=== PATIENT | female | born 1960 | race African-American/Black ===

== ENCOUNTER 2023-08-05 08:31 | Outpatient (AMB) | payer OTHER, SELFPAY ==
[2023-08-05 08:37] VITALS: BMI 33.0
--- NOTE | 2023-08-05 08:37 | A.OFFVIS_ITS ---
Intake VS Expanded 08/05/23 08:37 08/05/23 08:52 Height 5 ft 6 in 5 ft 6 in Weight 204 lb 5.896 oz 204 lb BMI 33.0 32.9 Intake Visit Reasons: Obesity Allergies FRUIT Allergy (Unknown, Uncoded 07/28/20 17:52) ALLERGY REPORTED TO SEED OR STONE FRUIT HPI Nutrition Presentation Details Pt presents for MNT for OBesity. The Pt was referred by MONROE Harrison from [facility] Pt reports she was 165 lbs 4 yrs ago, gradually gained weight post COVID dx on several occ requiring hospitalization. Pt reports she is currently undergoing tests for a possible autoimmune disorder. Typical meal B: coffee with cream no sugar , white toast and sausages, L: chips/diet soda supper: convenience homemade or no , meat /potato/vegetables ,( fried chicken/rice/fried fish ) food frequency: fish 2 x/wk fruits: 0-/d milk/yogurt: not including ice cream once/wk vegetables: salads x/weeks, green beans fried fish chicken/twice/wk no ETOH/No smoking Physical activity: sedentary LYR-Rjzfmsk-Mm.Jeor Equation Height 5 ft 6 in Weight 204 lb Resting Metabolic Rate 1496.27 Calculated Activity Level Mild Activity Calories Needed to Maintain Weight 2056.37 Diagnosis Nutrition problem #1 excessive energy intake As related to (etiology) #1 diagnosis As evidenced by (sign/symptom) #1 high BMI (32.9 on 07/2023) Monitoring/Goals Nutrition problem monitoring total PRO intake and weight Nutrition goal/outcome wt loss 5lbs in 2 months Outcome progress verbalized understanding Learning/Education Readiness to learn good Stages of change contemplation Educational materials provided Yes (meal planning [id number] michael) Most Recent Diabetes Results: No Data to Display Assessment & Plan Assessment & Plan (1) Obesity (BMI 30.0-34.9): Code(s): E66.9 - Obesity, unspecified Plan: wt: 93 Est kcal needs as per MSJ: 1680-2025 (40% carb, 30% protein/fat) Est fluid needs as per 30 ml/d: 2800 ml Est prot per day as per 1 g/kg bw: 93 Recommend fiber intake : 8-10 g per day and gradually increase to 25-28 g per day for women and 35-38 g for men or as tolerated Recommend sodium intake per day : less than 2000 mg Educated patient on: ( R = reviewed V = verbalizes understanding N/R = needs review N/A = not applicable * Food sources of carbohydrate, adequate serving sizes and its role in various health conditions: R * Differences between complex carbohydrates a simple carbohydrates, role of fiber in diet: R * Differences between types of fats and role in diet (mono on saturated fat fatty acids, saturated fatty acids, trans fats): R basic * Food sources of sodium in salt and healthy modifications for heart health in kidney health: NR * Vitamins and minerals: R * Healthy plate method concept: R V * Physical activity: Benefits a precaution: R V * Patient Instructions: Have 3 meals a day following healthy plate method Reduce on high fat food choices See 1800 -2000 michael meal plan Coding Level of Care Code Nutr Indiv Intake (56467) Diagnoses Obesity (BMI 30.0-34.9) E66.9 Time Spent (min) 30
[2023-08-05 08:52] VITALS: BMI 32.9
== END 2023-08-05 09:21 | disposition home or self-care (01) ==
LOC: HO.ENCR 08:31
PROVIDERS: PCP Registered Nurse; Visit Provider Dietitian, Registered
DX: E66.9 Obesity, unspecified (principal)

== ENCOUNTER → 2023-08-05 08:31 | Outpatient (BNVA) | payer OTHER, SELFPAY | PROVIDERS: PCP Registered Nurse; Visit Provider Dietitian, Registered | DX: E66.9 Obesity, unspecified (principal); Z68.32 Body mass index [BMI] 32.0-32.9, adult; Z71.3 Dietary counseling and surveillance | CPT/HCPCS: 97802 ==

== ENCOUNTER 2023-09-20 08:59 | Outpatient (AMB) | payer OTHER, SELFPAY ==
--- NOTE | 2023-09-20 09:11 | A.OFFVIS_ITS ---
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 Pt reports having made great progress in reducing soda intake to 1 liter per day from 3 liters or more and now is working on increasing water intake, may have 2- 3 cups/day Most Recent Diabetes Results: No Data to Display Assessment & Plan Assessment & Plan (1) Obesity (BMI 30.0-34.9): Code(s): E66.9 - Obesity, unspecified Plan: wt: 93 ,remains 93 kg ( 09/2023) Est kcal needs as per MSJ: 6850-7442 (40% carb, 30% protein/fat) Est fluid needs as per 30 ml/d: 2800 ml Est prot per day as per 1 g/kg bw: 93 Recommend fiber intake : 8-10 g per day and gradually increase to 25-28 g per day for women and 35-38 g for men or as tolerated Recommend sodium intake per day : less than 2000 mg Educated patient on: ( R = reviewed V = verbalizes understanding N/R = needs review N/A = not applicable * Food sources of carbohydrate, adequate serving sizes and its role in various health conditions: R * Differences between complex carbohydrates a simple carbohydrates, role of fiber in diet: R * Differences between types of fats and role in diet (mono on saturated fat fatty acids, saturated fatty acids, trans fats): R basic * Food sources of sodium in salt and healthy modifications for heart health in kidney health: NR * Vitamins and minerals: R * Healthy plate method concept: R V * Physical activity: Benefits a precaution: R V * Patient Instructions: Have yogurt with fruit as breakfast Have a meal replacement 4 times a week at dinner CArry with water bottle, add lemon for flavor and aim at increasing water to 3 cups additional per day wt loss goal 199 lbs by next follow up Coding Level of Care Code Nutr Indiv Subseq (61235) Diagnoses Obesity (BMI 30.0-34.9) E66.9 Time Spent (min) 30
[2023-09-20 09:12] VITALS: BMI 32.9
== END 2023-09-20 09:50 | disposition home or self-care (01) ==
PROVIDERS: PCP Registered Nurse; Visit Provider Dietitian, Registered
DX: E66.9 Obesity, unspecified (principal)

== ENCOUNTER → 2023-09-20 08:59 | Outpatient (BNVA) | payer OTHER, SELFPAY | PROVIDERS: PCP Registered Nurse; Visit Provider Dietitian, Registered | DX: E66.9 Obesity, unspecified (principal); Z68.32 Body mass index [BMI] 32.0-32.9, adult; Z71.3 Dietary counseling and surveillance | CPT/HCPCS: 97803 ==